=== PATIENT | male | born 2000 | race Hispanic/Latino ===

== ENCOUNTER 2020-06-28 22:18 | Emergency (ER) | payer OTHER, BC ==
[2020-06-28] MEDS ORDERED: Proparacaine 0.5% Opth 15 ML BOT ONE (22:56)
[2020-06-28] MEDS ORDERED: Fluorescein Opthalmic Strip ONE (22:56)
[2020-06-28] MEDS ORDERED: Tetracaine 0.5% PF 4 ML BOT EA EYE SCH (23:15)
[2020-06-28] MEDS ORDERED: Tetracaine HCl 0.5% Ophth Soln 15 ML Bottle EA EYE SCH (23:15)
[2020-06-29] MEDS ORDERED: Ondansetron ODT 8 MG TAB ONE (00:23)
[2020-06-29] MEDS ORDERED: Boostrix 0.5 ML (Tdap) VIAL ONE ×2 (00:23→00:28)
== END 2020-06-29 00:30 | disposition home or self-care (01) ==
LOC: ERS 22:18
DX: S05.02XA Injury of conjunctiva and corneal abrasion without foreign body, left eye, initial encounter (principal); S05.8X2A Other injuries of left eye and orbit, initial encounter; Z87.891 Personal history of nicotine dependence; X58.XXXA Exposure to other specified factors, initial encounter
CPT/HCPCS: 90471; 90715; Q0162